=== PATIENT | male | born 2000 | race African-American/Black ===

== ENCOUNTER 2024-08-23 14:46 | Emergency (ER) | payer MEDICAID ==
[~2024-08-23] VITALS: Ht 180.3 cm; Wt 73.0 kg
[2024-08-23 15:38] VITALS: O2SAT 100
[2024-08-23] MEDS ORDERED: ISOP30DR11 EACH EAR (18:52)
[2024-08-23 19:21] VITALS: BP 117/73; PULSE 72; RESP 20; TEMP 36.61404; O2SAT 100
== END 2024-08-23 19:22 | disposition home or self-care (01) ==
LOC: ER 14:46
DX: T16.2XXA Foreign body in left ear, initial encounter (principal); T16.1XXA Foreign body in right ear, initial encounter; Z98.890 Other specified postprocedural states; W44.8XXA Other foreign body entering into or through a natural orifice, initial encounter; Y93.89 Activity, other specified; Y92.89 Other specified places as the place of occurrence of the external cause; Y99.8 Other external cause status
CPT/HCPCS: 69200; 99284